=== PATIENT | female | born 1995 | race Caucasian/White ===

== ENCOUNTER 2016-12-18 12:16 | Emergency (ER) | payer OTHER ==
[2016-12-18 12:24] VITALS: TEMP 97.7
--- NOTE | 2016-12-18 12:47 | EDPHY ---
H & P Time Seen by Provider: 12/18/16 12:28 HPI/ROS: CHIEF COMPLAINT: Skin avulsion finger HISTORY OF PRESENT ILLNESS: 21-year-old female states that last evening she fell sustaining a superficial skin avulsion to her left 4th digit distal phalanx. Tetanus up-to-date. She is complaining of continued slow bleeding and pain. Denies underlying osseous pain. PHYSICAL EXAM (Prior to examination, patient consented to physical exam, hands were washed and my usual and customary physical exam procedures followed) 1) GENERAL: Well-developed, well-nourished, alert and oriented. Appears to be in no acute distress. 2) HEAD: Normocephalic 3) HEENT: sclera anicteric 4) LUNGS: Breathing comfortably. 5) SKIN: left 4th digit distal phalanx superficial skin avulsion with slow capillary bleed. 6) MUSCULOSKELETAL: [full sensation. Flexor extensor function at the MCP PIP D IP intact with no deficits 7) NEUROLOGIC: Full sensation Smoking Status: Never smoked Constitutional: Initial Vital Signs Temperature (C) 36.5 C 12/18/16 12:21 Heart Rate 94 12/18/16 12:21 Respiratory Rate 19 12/18/16 12:21 Blood Pressure 135/87 H 12/18/16 12:21 O2 Sat (%) 97 12/18/16 12:21 O2 Delivery Mode Room Air Allergies/Adverse Reactions: No Known Allergies Allergy (Unverified 12/18/16 12:21) Home Medications: Medication Instructions Recorded NK [No Known Home Meds] 12/18/16 MDM/Departure - MDM Procedures: Procedure: Wound management The digit was anesthetized using 0.5% bupivicaine without epinephrine digital nerve block. After anesthetic administered the patient was observed for a period of time and had no apparent adverse effects. The wound was cleaned, prepped, dressed with Surgicel resulting in hemostasis. Patient tolerated procedure well - Depart Disposition: Home, Routine, Self-Care Clinical Impression: Avulsion of skin of finger Qualifiers: Encounter type: initial encounter Qualified Code(s): S61.209A - Unspecified open wound of unspecified finger without damage to nail, initial encounter Condition: Good Instructions: Skin Avulsion (ED) Additional Instructions: Return to the ER if you develop redness, swelling, discharge, warmth to the wound, red streaks going up your arm or leg, or any other symptoms that concern you. Referrals: Yaakov Khan MD [Medical Doctor] - 5-7 days, call for appt.
[2016-12-18 13:28] VITALS: BP 125/76; PULSE 75; RESP 16; O2SAT 98
== END 2016-12-18 13:28 | disposition home or self-care (01) ==
PROC: 3E0T3BZ Introduction of Anesthetic Agent into Peripheral Nerves and Plexi, Percutaneous Approach (ICD-10-PCS; principal; 2016-12-18)
DX: S61.205A Unspecified open wound of left ring finger without damage to nail, initial encounter (principal); W19.XXXA Unspecified fall, initial encounter

== ENCOUNTER 2016-12-27 10:23 | Emergency (ER) | payer OTHER ==
[2016-12-27 10:27] VITALS: BP 109/76; PULSE 72; RESP 18; TEMP 97.7; O2SAT 99
--- NOTE | 2016-12-27 11:34 | EDPHY ---
H & P Smoking Status: Never smoked HPI/ROS: HPI: This is a 21-year-old female who presents with Chief Complaint: Left 4th digit drainage Location: Left 4th digit Quality: Drainage Duration: 2 days Signs and Symptoms: No redness, no warmth, mild discharge, no swelling, no radiation, no weakness, no decreased range of motion Timing: Gradual onset Severity: Mild Context: Patient sustained skin avulsion on that finger approximately 1 week. Her tetanus was up-to-date. Local wound care provided in our ER. Modifying Factors: Washing daily with mild soap and water Comment: ROS: Eyes: No blurred vision Respiratory: No shortness of breath, no cough Cardiovascular: No chest pain Gastrointestinal: No nausea, no vomiting no diarrhea Genitourinary: No dysuria Extremities: No myalgias Neurologic: No weakness, no numbness Skin: No rashes Hematologic: No bruising, no bleeding MEDICAL/SURGICAL HISTORY: Generally healthy. Denies surgical history. (Lakesha Pierre) Past Medical/Surgical History: Denies history of diabetes, hypertension, lupus, asthma. (Lakesha Pierre) Social History: Student. (Lakesha Pierre) Physical Exam: CONSTITUTIONAL: awake and alert, no obvious distress HEENT: Atraumatic and normocephalic, PERRL, EOMI. Tympanic membranes clear. . Oropharynx clear, no exudate and moist pink mucosa. Airway patent. No lymphadenopathy. No meningismus. Cardiovascular: Normal S1/S2, regular rate, regular rhythm, without murmur rub or gallop. PULMONARY/CHEST: Symmetrical and nontender. Clear to auscultation bilaterally Good air movement. No accessory muscle usage. ABDOMEN: Soft, nondistended, nontender, no rebound, no guarding, no peritoneal signs, no masses or organomegaly. No CVAT. EXTREMITIES: 2/2 pulses, no clubbing, no cyanosis or edema. Left 4th digit on the finger pad; shows a scabbed area; with epithelialization and good granulation tissue; no erythema; no warmth; mild tenderness to palpation. Flexion extension and light touch sensation intact. NEUROLOGICAL: no focal neuro deficits. GCS 15. SKIN: Warm and dry, no erythema. no rash. Good capillary refill. (Lakesha Pierre) Constitutional: Initial Vital Signs Temperature (C) 36.5 C 12/27/16 10:25 Heart Rate 72 08/22/17 10:25 Respiratory Rate 18 12/27/16 10:25 Blood Pressure 109/76 12/27/16 10:25 O2 Sat (%) 99 12/27/16 10:25 O2 Delivery Mode Room Air Allergies/Adverse Reactions: No Known Allergies Allergy (Unverified 12/27/16 10:27) Home Medications: Medication Instructions Recorded Mupirocin 2% [Bactroban 2%] 15 gm TP BID #0 oint 12/27/16 Medical Decision Making ED Course/Re-evaluation: Wound care Areas washed with mild soap and water and soaked. Xeroform and clean sterile dressing placed. Advised applied Bactroban twice daily x5 days. No signs of cellulitis, neurovascular compromise, abscess, paronychia. (Lakesha Pierre) The patient was evaluated and managed by the physician assistant superintendent for curriculum. I have reviewed this chart and I agree with the findings and plan of care as documented , as indicated by my signature. I am the secondary supervising physician. ( Mindi Lehman) Departure - Departure Disposition: Home, Routine, Self-Care Clinical Impression: Encounter for wound re-check Contusion of left ring finger Qualifiers: Encounter type: subsequent encounter Damage to nail status: without damage Qualified Code(s): S60.042D - Contusion of left ring finger without damage to nail, subsequent encounter Condition: Good Instructions: Cellulitis (ED) Additional Instructions: Dressing in place for 48 hours. After 48 hours may remove dressing and wash daily with mild soap and water. Apply topical antibiotic ointment twice a day x5 days. Cover area concern with clean sterile dressing until fully healed. Referrals: MARGARETH EUCEDA [Other] - As per Instructions Prescriptions: Mupirocin 2% [Bactroban 2%] 15 gm TP BID #0 oint
== END 2016-12-27 11:41 | disposition home or self-care (01) ==
DX: S60.042D Contusion of left ring finger without damage to nail, subsequent encounter (principal); X58.XXXD Exposure to other specified factors, subsequent encounter